=== PATIENT | female | born 1990 | race African-American/Black ===

== ENCOUNTER 2017-03-24 20:55 | Emergency (ER) | payer OTHER ==
[~2017-03-24] VITALS: Ht 154.9 cm; Wt 74.8 kg
[2017-03-24 22:04] VITALS: BP 135/81
[2017-03-24] MEDS ORDERED: ONDANSETRON 4 MG TAB.RAPDIS ONE (22:52)
[2017-03-24] MEDS ORDERED: ONDANSETRON 4 MG TAB.RAPDIS PO ONE (23:00)
--- NOTE | 2017-03-24 23:05 | NUR ---
[facility]LAUS NOT IN ER PIXIS, WENT TO HOUSE SUP BUT NOT IN THEIR PIXIS, WENT TO 3RD FLOOR TO RETRIEVE MEDICINE
== END 2017-03-24 23:21 | disposition home or self-care (01) ==
LOC: ER 20:55
DX: S30.0XXA Contusion of lower back and pelvis, initial encounter (principal); V49.59XA Passenger injured in collision with other motor vehicles in traffic accident, initial encounter; Y93.89 Activity, other specified; Y92.410 Unspecified street and highway as the place of occurrence of the external cause; Y99.9 Unspecified external cause status
CPT/HCPCS: 72110-TC; A4606; Q0162; Z7610